=== PATIENT | female | born 1960 | race Caucasian/White ===

== ENCOUNTER 2021-08-30 11:11 | Emergency (ER) | payer OTHER, SELFPAY | END 2021-08-30 12:02 | disposition home or self-care (01) | LOC: BURERS 11:11 | DX: S63.501A Unspecified sprain of right wrist, initial encounter (principal); M19.031 Primary osteoarthritis, right wrist ==

== ENCOUNTER 2024-02-13 20:26 | Emergency (ER) | payer OTHER ==
[2024-02-13] MEDS ORDERED: Adenosine 6 mg (2 mL) VIAL ONE (20:37)
[2024-02-13] MEDS ORDERED: Aspirin Chewable 81 MG TAB ONE (20:47)
[2024-02-13] MEDS ORDERED: Metoprolol Tartrate 5 MG (5 mL) VIAL ONE (20:47)
[2024-02-13 20:56] LABS: #Basophils 0.1 thou/uL (0.0-0.2); #Lymphocytes 1.3 thou/uL (1.20-3.40); #Monocytes 0.1 thou/uL (0.11-0.59); #Neutrophils 10.4 thou/uL (1.40-6.50); %Basophils 0.5 % (0.0-1.0); %Lymphocytes 11.1 % (21.0-51.0); %Monocytes 0.9 % (0.0-10.0); %Neutrophils 87.5 % (42.0-75.0); Hematocrit 49.8 % (36.0-47.0); Mean Corpuscular HGB CONC 32.2 g/dL (32.0-36.0); Mean Corpuscular Hemoglobin 28.3 pg (27.0-31.0); Mean Corpuscular Volume 87.8 fl (78.0-98.0); Mean Platelet Volume 6.9 fL (7.4-10.4); Platelet Count 369 10x3/uL (130-400); RBC Distribution Width 11.9 % (11.5-14.5); Red Blood Cell (RBC) Count 5.67 mill/uL (4.20-5.40); White Blood Cell (WBC) Count 11.9 10x3/uL (4.8-10.8)
[2024-02-13 21:22] LABS: ALT (SGPT) 36 U/L (8-55); AST (SGOT) 38 U/L (5-34); Albumin 4.6 g/dL (3.4-4.8); Alkaline Phosphatase 65 U/L (40-110); Anion Gap 18 mmol/L (10-20); BUN (Urea Nitrogen) 24 mg/dL (9.8-20.1); Bilirubin, Total 0.3 mg/dL (0.2-1.2); Calc. Creatinine Clearance 0 mL/min (70-130); Calcium 9.4 mg/dL (7.8-10.44); Carbon Dioxide 17 mmol/L (23-31); Chloride 106 mmol/L (98-107); Estimated GFR 75; Globulin 2.9 g/dL (2.4-3.5); Glucose 160 mg/dL (80-115); Potassium 4.9 mmol/L (3.5-5.1); Protein, Total 7.5 g/dL (5.8-8.1); Sodium 136 mmol/L (136-145)
[2024-02-13 21:24] LABS: Troponin I 0.011 ng/mL (< 0.028)
[2024-02-14 00:38] LABS: Troponin I 0.026 ng/mL (< 0.028)
[2024-02-14 01:15] LABS: Base Excess-Venous -2.3 mmol/L (-2.0 to 3.0); Bicarbonate (HCO3v) 21.7 mmol/L (22.0-28.0); CO2 Tension (PvCO2) 34.4 mmHg (42.0-51.0); Calcium, Ionized 1.19 mmol/L (1.15-1.33); Chloride 105 mmol/L (98-107); Hemoglobin - Calc 16.6 g/dL (12.0-16.0); Potassium 4.4 mmol/L (3.5-5.1); Sodium 138 mmol/L (138-145); T. Carbon Dioxide 22.7 mmol/L (22.0-28.0); vO2 Saturation-calc 97.6 % (60.0-85.0)
== END 2024-02-14 01:30 | disposition short-term general hospital (02) ==
LOC: BURERS 20:26
DX: I47.10 Supraventricular tachycardia, unspecified (principal)
CPT/HCPCS: 71045; 80053; 82330; 82435; 82803; 83605; 83880; 84132; 84295; 84443; 84484; 85014; 85025; 85379; 93005; 94760; 96374; 96375; J0153